=== PATIENT | male | born 1960 | race Caucasian/White ===

== ENCOUNTER 2021-12-23 11:40 | Day surgery (SDC) | payer OTHER, MEDICAID, SELFPAY ==
[2021-12-23 12:20] VITALS: BP 148/79; PULSE 61; RESP 16; TEMP 36.6; O2SAT 98; BMI 40.6
[2021-12-23] MEDS: Lactated Ringers 1,000 ML 15 ML IV (13:34)
--- NOTE | 2021-12-23 13:34 | PCM.HP.BLA ---
History and Physical Date of Admission: 12/23/21 Tree is a pleasant 61 old gentleman who arrives here for screening colonoscopy. He has a past medical history of a bladder, mild COPD, CAD, hypertension who arrives here for screening colonoscopy. He is not having any problems with his bowels. He denied abdominal pain. He is not having any chest pain shortness of breath. He is not having any weakness. He is not have any nausea, bloating or abdominal discomfort. He is not have any melena or hematochezia. Overall he is doing very well. All other 16 review of systems are negative except as per positive mentioned HPI. Past medical history is positive for atrial flutter, wipeout complex arrhythmia, hypertension, obesity, COPD Past surgical history possible cardiac cath He has no known drug allergies Medications albuterol 2 puffs every 4 hours as needed, aspirin 81 mg a day, atorvastatin 40 mg a day, vitamin D3 25 mcg a day, diltiazem 240 mg a day, glucosamine complex 2 capsule once a day, fish oil complex 1/day, lisinopril hydrochlorothiazide combination 1 tab a day, loratadine 10 mg a day and, ramipril 10 mg twice a day Family history is negative for GI malignancy or GI disease Social history negative alcohol or drugs blood pressure is 148/79 pulse is 61 respiratory to 16 temperature is 98 any satting 90% on room air Generally no acute distress On HEENT's no jaundice no icteric Neck is no JVD lymphadenopathy Lungs clear to auscultation bilaterally Heart regular rate regular rhythm no murmurs or gallops Abdomen soft nontender distended and obese Extremities no clubbing cyanosis edema Assessment plan very pleasant 7-year-old gentleman comes in for screening colonoscopy. He was explained alternatives, risk, benefits including not withstanding bleeding, infection, sepsis, perforation, need for emergency or . Have an ASA of 3.
[2021-12-23 14:10] VITALS: BP 122/63; BP 148/79; PULSE 63; RESP 16; TEMP 36.7; O2SAT 97
--- NOTE | 2021-12-23 14:13 | OP.CCLET_ITS ---
07/20/2022 Romario Berg Re : Colonoscopy procedure for Eleazar Jolley Dear [place] This procedure was performed on Thursday, December 23, 2021. My impressions and recommendations are as follows: Impressions : - Mild diverticulosis in the sigmoid colon and in the descending colon. - The examination was otherwise normal on direct and retroflexion views. - No specimens collected. Recommendations : - Discharge patient to home. - Resume previous diet. - Continue present medications. - Repeat colonoscopy in 10 years for surveillance. My findings are described in the full procedure note, which is enclosed. If I can be of further assistance, please feel free to contact me at . Sincerely, Obed Marshall, 12/23/2021 2:12:45 PM This report has been signed electronically.
--- NOTE | 2021-12-23 14:13 | OP.COLON_ITS ---
Patient Name: Eleazar Jolley Procedure Date: 12/23/2021 1:36 PM Date of : 1960 Age: 61 Procedure: Colonoscopy Indications: Screening for colorectal malignant neoplasm Providers: Obed Marshall DO Medicines: See the Anesthesia note for documentation of the administered medications Patient Profile: Last Colonoscopy: date unknown. Unable to locate last colonoscopy report. Complications: No immediate complications. Procedure: Pre-Anesthesia Assessment: - Prior to the procedure, a History and Physical was performed, and patient medications and allergies were reviewed. The patient is competent. The risks and benefits of the procedure and the sedation options and risks were discussed with the patient. All questions were answered and informed consent was obtained. Patient identification and proposed procedure were verified by the physician in the pre-procedure area. Mental Status Examination: alert and oriented. Airway Examination: normal oropharyngeal airway and neck mobility. Respiratory Examination: clear to auscultation. CV Examination: normal. Prophylactic Antibiotics: The patient does not require prophylactic antibiotics. Prior Anticoagulants: The patient has taken no previous anticoagulant or antiplatelet agents. ASA Grade Assessment: II - A patient with mild systemic disease. After reviewing the risks and benefits, the patient was deemed in satisfactory condition to undergo the procedure. The anesthesia plan was to use moderate sedation / analgesia (conscious sedation). Immediately prior to administration of medications, the patient was re-assessed for adequacy to receive sedatives. The heart rate, respiratory rate, oxygen saturations, blood pressure, adequacy of pulmonary ventilation, and response to care were monitored throughout the procedure. The physical status of the patient was re-assessed after the procedure. After I obtained informed consent, the scope was passed under direct vision. Throughout the procedure, the patient's blood pressure, pulse, and oxygen saturations were monitored continuously. The colonoscope was introduced through the anus and advanced to the cecum, identified by appendiceal orifice and ileocecal valve. The colonoscopy was performed without difficulty. The patient tolerated the procedure well. The quality of the bowel preparation was good. Moderate Sedation: Moderate (conscious) sedation was administered by the endoscopy nurse and supervised by the endoscopist. The patient's oxygen saturation, heart rate, blood pressure and response to care were monitored. Total physician intraservice time was 15 minutes. Moderate (conscious) sedation was administered by the endoscopy nurse and supervised by the endoscopist. The patient's oxygen saturation, heart rate, blood pressure and response to care were monitored. Total physician intraservice time was 15 minutes. Scope In: 1:48:41 PM Scope Withdrawal Time 0 hours 11 minutes 24 seconds Scope Out: 2:07:48 PM Total Procedure Duration Time 0 hours 19 minutes 7 seconds Findings: The perianal and digital rectal examinations were normal. A few small and large-mouthed diverticula were found in the sigmoid colon and descending colon. The exam was otherwise without abnormality on direct and retroflexion views. Impression: - Mild diverticulosis in the sigmoid colon and in the descending colon. - The examination was otherwise normal on direct and retroflexion views. - No specimens collected. Recommendation: - Discharge patient to home. - Resume previous diet. - Continue present medications. - Repeat colonoscopy in 10 years for surveillance. Procedure Code(s): --- Professional --- G0121, Colorectal cancer screening; colonoscopy on individual not meeting criteria for high risk 16027, 59, Moderate sedation services provided by the same physician or other qualified health small animal caretaker performing the diagnostic or therapeutic service that the sedation supports, requiring the presence of an independent trained observer to assist in the monitoring of the patient's level of consciousness and physiological status; initial 15 minutes of intraservice time, patient age 5 years or older [address], 59, Moderate sedation services provided by the same physician or other qualified health small animal caretaker performing the diagnostic or therapeutic service that the sedation supports, requiring the presence of an independent trained observer to assist in the monitoring of the patient's level of consciousness and physiological status; initial 15 minutes of intraservice time, patient age 5 years or older CPT copyright 2017 [employer]. All rights reserved. The codes documented in this report are preliminary and upon research attorney review may be revised to meet current compliance requirements. Obed Marshall DO 12/23/2021 2:12:45 PM This report has been signed electronically. Number of Addenda: 1 Note Initiated On: 12/23/2021 1:36 PM Addendum Number: 1 Addendum Date: 07/20/2022 6:40:23 AM MAC was used for sedation during this procedure. Obed Marshall DO 07/20/2022 6:40:29 AM This report has been signed electronically.
[2021-12-23 14:15] VITALS: BP 123/69; BP 148/79; PULSE 54; RESP 16; O2SAT 96
[2021-12-23 14:20] VITALS: BP 129/89; BP 148/79; PULSE 56; RESP 16; O2SAT 97
[2021-12-23 14:25] VITALS: BP 138/67; BP 148/79; PULSE 55; RESP 16; TEMP 36.9; O2SAT 97
[2021-12-23 14:40] VITALS: BP 148/79
== END 2021-12-23 23:59 | disposition home or self-care (01) ==
LOC: EN 12:13 → AC 12:16
PROVIDERS: Visit Provider Internal Medicine Gastroenterology
PROC: 0DJD8ZZ Inspection of Lower Intestinal Tract, Via Natural or Artificial Opening Endoscopic (ICD-10-PCS; CPT 45378; principal; 2021-12-23 13:25)
DX: Z12.11 Encounter for screening for malignant neoplasm of colon (principal); J44.9 Chronic obstructive pulmonary disease, unspecified; K57.30 Diverticulosis of large intestine without perforation or abscess without bleeding; I10 Essential (primary) hypertension; I25.10 Atherosclerotic heart disease of native coronary artery without angina pectoris
CPT/HCPCS: 45378; J7120; A4216; J2405